=== PATIENT | female | born 1970 | race Caucasian/White ===

== ENCOUNTER → 2017-10-21 | Outpatient (CLI) | payer OTHER ==
[~2017-10-21] MED LIST: CYCL10 PO; HYDACE5 PO; IBUP600 PO
[2017-10-21 13:14] LABS: BASOPHILS ABSOLUTE AUTO 0.03 K/mm3 (0.00-0.23); BASOPHILS PERCENT AUTO 1 % (0-2); EOSINOPHILS ABSOLUTE AUTO 0.03 K/mm3 (0.00-0.68); EOSINOPHILS PERCENT AUTO 1 % (0-6); Hematocrit 28.8 % (33.0-51.0); Hemoglobin 8.3 g/dL (11.5-16.0); IMMATURE GRAN ABSOLUTE AUTO 0.01 K/mm3 (0.00-0.10); IMMATURE GRAN PERCENT AUTO 0 % (0-1); LYMPHOCYTES ABSOLUTE AUTO 1.42 K/mm3 (0.84-5.20); LYMPHOCYTES PERCENT AUTO 27 % (21-46); MONOCYTES ABSOLUTE AUTO 0.43 K/mm3 (0.16-1.47); MONOCYTES PERCENT AUTO 8 % (4-13); Mean Corpuscular HGB 20.9 pg (26.0-34.0); Mean Corpuscular HGB Conc 28.8 g/dL (31.5-36.5); Mean Corpuscular Volume 73 fL (80-100); Mean Platelet Volume 9.9 fL (9.1-12.4); NEUTROPHILS PERCENT AUTO 64 % (41-73); Platelet Count 431 K/mm3 (150-400); RDW Coefficient Variation 18.3 % (11.7-14.2); RDW Standard Deviation 48.1 fL (35.1-46.3); Red Blood Cell Count 3.97 M/mm3 (3.80-5.20); White Blood Cell Count 5.32 K/mm3 (4.00-11.30)
[2017-10-21 13:34] LABS: Alanine Aminotransfer (ALT/SGP 13 U/L (12-78); Albumin, Blood 3.1 g/dL (3.4-5.0); Alk Phos 57 U/L (50-136); Anion Gap 5 mmol/L (6-16); Aspartate Aminotrans (AST/SGOT 8 U/L (12-37); Bilirubin, Total 0.3 mg/dL (0.1-1.0); Blood Urea Nitrogen 9 mg/dL (8-24); CO2, Blood 25 mmol/L (21-32); Calcium, Blood 7.8 mg/dL (8.5-10.1); Chloride, Blood 110 mmol/L (98-108); Creatinine, Blood 0.53 mg/dL (0.40-1.00); Globulin, Blood 3.1 g/dL (2.2-4.0); Glomerular Filtration Rate >60 (60-); Glucose, Blood 84 mg/dL (70-99); Potassium, Blood 4.1 mmol/L (3.5-5.5); Sodium, Blood 140 mmol/L (136-145); Total Protein, Blood 6.2 g/dL (6.4-8.2)
== END ==
LOC: LAB 12:41
PROVIDERS: Physician Assistant
DX: R53.83 Other fatigue (principal)
CPT/HCPCS: 80053; 85025

== ENCOUNTER → 2017-10-25 | Outpatient (CLI) | payer OTHER | END | disposition home or self-care (01) | LOC: LAB 16:09 | PROVIDERS: Nurse Practitioner Family | DX: Z48.815 Encounter for surgical aftercare following surgery on the digestive system (principal); Z98.84 Bariatric surgery status | CPT/HCPCS: 82607; 82728; 83540; 83550 ==

== ENCOUNTER → 2018-06-19 | Outpatient (CLI) | payer BC ==
[2018-06-20 12:01] LABS: Antinuclear Antibody Screen Negative (Negative)
[2018-06-20 14:56] LABS: Rheumatoid Factor, Serum Negative (Negative)
== END ==
LOC: LAB SHORT 15:30 → LAB 15:30
PROVIDERS: Nurse Practitioner Family
DX: R30.0 Dysuria (principal); M25.50 Pain in unspecified joint
CPT/HCPCS: 85651; 86038; 86430; 87077; 87086; 87186

== ENCOUNTER → 2018-08-06 | Outpatient (CLI) | payer BC | END | disposition home or self-care (01) | LOC: LAB SHORT 12:10 → LAB 12:10 | DX: R30.0 Dysuria (principal) | CPT/HCPCS: 87086 ==

== ENCOUNTER 2021-03-20 04:36 | Emergency (ER) | payer BC ==
[~2021-03-20] VITALS: Ht 160 cm; Wt 49.0 kg
[~2021-03-20 04:36] MED LIST changes: +CITA20
[2021-03-20 05:22] LABS: Source, Urine Clean Catch
[2021-03-20 05:26] LABS: BASOPHILS ABSOLUTE AUTO 0.03 K/mm3 (0.00-0.23); BASOPHILS PERCENT AUTO 0 % (0-2); EOSINOPHILS PERCENT AUTO 0 % (0-6); Hematocrit 38.6 % (33.0-51.0); IMMATURE GRAN ABSOLUTE AUTO 0.04 K/mm3 (0.00-0.10); IMMATURE GRAN PERCENT AUTO 0 % (0-1); LYMPHOCYTES ABSOLUTE AUTO 0.36 K/mm3 (0.84-5.20); LYMPHOCYTES PERCENT AUTO 3 % (21-46); MONOCYTES ABSOLUTE AUTO 0.25 K/mm3 (0.16-1.47); MONOCYTES PERCENT AUTO 2 % (4-13); Mean Corpuscular HGB 25.1 pg (26.0-34.0); Mean Corpuscular HGB Conc 31.1 g/dL (31.5-36.5); Mean Corpuscular Volume 81 fL (80-100); NEUTROPHILS ABSOLUTE AUTO 12.72 K/mm3 (1.96-9.15); NEUTROPHILS PERCENT AUTO 95 % (41-73); Platelet Count 404 K/mm3 (150-400); RDW Coefficient Variation 17.2 % (11.7-14.2); RDW Standard Deviation 49.4 fL (35.1-46.3); Red Blood Cell Count 4.78 M/mm3 (3.80-5.20)
[2021-03-20 05:36] LABS: Albumin, Blood 3.4 g/dL (3.4-5.0); Albumin/Globulin Ratio 0.8 (0.8-1.8); Bilirubin, Total 0.8 mg/dL (0.1-1.0); Bun/Creatinine Ratio 16.5 (12.0-20.0); Calcium, Blood 8.6 mg/dL (8.5-10.1); Creatinine, Blood 1.09 mg/dL (0.40-1.00); Globulin, Blood 4.1 g/dL (2.2-4.0); Potassium, Blood 3.9 mmol/L (3.5-5.5); Total Protein, Blood 7.5 g/dL (6.4-8.2)
[2021-03-20 05:44] LABS: Bilirubin, Urine Neg (Neg); Blood, Urine Neg (Neg); Glucose Qualitative, Urine Neg (Neg); Ketones, Urine 2+ (Neg); Leukocyte Esterase, Urine Neg (Neg); Nitrite, Urine Pos (Neg); Protein, Urine 1+ (Neg); Urobilinogen, Urine NORM (Normal)
[2021-03-20 05:45] LABS: Appearance, Urine Clear (Clear); Color, Urine Yellow (P-Yellow)
[2021-03-20 05:46] LABS: Bacteria Many /hpf; Red Blood Cells, Urine 0-2 /hpf (0-2); Squamous Epithelial Cells Few /hpf (Few)
[2021-03-20] MEDS ORDERED: LIDO700A20 TOP (07:01)
[2021-03-20] MEDS ORDERED: OMEP20ER (07:02)
[2021-03-20] MEDS ORDERED: HYDACE10B PO (07:02)
[2021-03-20 11:23] LABS: SARS-Cov-2 (COVID-19) PCR, MMC POSITIVE (NEGATIVE)
== END 2021-03-20 13:30 | disposition short-term general hospital (02) ==
LOC: ER 04:36
PROVIDERS: Emergency Medicine; Physician Assistant
DX: N13.6 Pyonephrosis (principal); Z79.899 Other long term (current) drug therapy; Z87.891 Personal history of nicotine dependence; Z20.822 Contact with and (suspected) exposure to COVID-19
CPT/HCPCS: 36415; 74176; 80053; 81001; 81025; 83605; 83690; 85025; 87040; 87086; 96365; 96375; 96376; 99285-25; J0696; J1170; J3010; J7030; U0004

== ENCOUNTER 2021-04-13 07:40 | Emergency (ER) | payer BC ==
[~2021-04-13] VITALS: Ht 160 cm; Wt 53.1 kg
[~2021-04-13 07:40] MED LIST changes: +HYDACE10B PO; +LIDO700A20 TOP; +OMEP20ER
[2021-04-13 08:52] LABS: BASOPHILS ABSOLUTE AUTO 0.03 K/mm3 (0.00-0.23); BASOPHILS PERCENT AUTO 1 % (0-2); EOSINOPHILS PERCENT AUTO 2 % (0-6); Hematocrit 34.2 % (33.0-51.0); Hemoglobin 10.6 g/dL (11.5-16.0); IMMATURE GRAN ABSOLUTE AUTO 0.02 K/mm3 (0.00-0.10); IMMATURE GRAN PERCENT AUTO 0 % (0-1); LYMPHOCYTES ABSOLUTE AUTO 1.71 K/mm3 (0.84-5.20); LYMPHOCYTES PERCENT AUTO 27 % (21-46); MONOCYTES PERCENT AUTO 8 % (4-13); Mean Corpuscular HGB 25.5 pg (26.0-34.0); Mean Corpuscular Volume 82 fL (80-100); Mean Platelet Volume 10.2 fL (9.1-12.4); NEUTROPHILS ABSOLUTE AUTO 3.99 K/mm3 (1.96-9.15); NEUTROPHILS PERCENT AUTO 63 % (41-73); Platelet Count 328 K/mm3 (150-400); RDW Coefficient Variation 17.2 % (11.7-14.2); RDW Standard Deviation 51.8 fL (35.1-46.3); Red Blood Cell Count 4.16 M/mm3 (3.80-5.20); White Blood Cell Count 6.35 K/mm3 (4.00-11.30)
[2021-04-13 09:12] LABS: Alanine Aminotransfer (ALT/SGP 13 U/L (12-78); Albumin, Blood 3.2 g/dL (3.4-5.0); Albumin/Globulin Ratio 0.8 (0.8-1.8); Alk Phos 92 U/L (50-136); Anion Gap 2 mmol/L (6-16); Aspartate Aminotrans (AST/SGOT 15 U/L (12-37); Bilirubin, Total 0.3 mg/dL (0.1-1.0); Blood Urea Nitrogen 15 mg/dL (8-24); Bun/Creatinine Ratio 20.1 (12.0-20.0); CO2, Blood 32 mmol/L (21-32); Calcium, Blood 8.5 mg/dL (8.5-10.1); Chloride, Blood 102 mmol/L (98-108); Creatinine, Blood 0.75 mg/dL (0.40-1.00); Globulin, Blood 3.9 g/dL (2.2-4.0); Glomerular Filtration Rate >60 (60-); Glucose, Blood 93 mg/dL (70-99); Potassium, Blood 4.1 mmol/L (3.5-5.5); Sodium, Blood 136 mmol/L (136-145); Total Protein, Blood 7.1 g/dL (6.4-8.2)
[2021-04-13 10:07] LABS: Source, Urine Clean Catch
[2021-04-13 10:44] LABS: Bilirubin, Urine Neg (Neg); Blood, Urine 5+ (Neg); Glucose Qualitative, Urine Neg (Neg); Ketones, Urine Neg (Neg); Leukocyte Esterase, Urine 3+ (Neg); Nitrite, Urine Neg (Neg); Protein, Urine 3+ (Neg); Urobilinogen, Urine NORM (Normal)
[2021-04-13 11:03] LABS: Appearance, Urine Hazy (Clear); Color, Urine Yellow (P-Yellow)
[2021-04-13 11:04] LABS: Bacteria Few /hpf; Red Blood Cells, Urine TNTC /hpf (0-2); Squamous Epithelial Cells Not Seen /hpf (Few); White Blood Cells, Urine TNTC /hpf (0-5)
== END 2021-04-13 11:51 | disposition home or self-care (01) ==
LOC: ER 07:40
PROVIDERS: Emergency Medicine
DX: R60.0 Localized edema (principal); Z87.891 Personal history of nicotine dependence
CPT/HCPCS: 36415; 51798; 71046; 74176; 80053; 81001; 83880; 85025; 87086; 93005; 93010; 99284-25

== ENCOUNTER 2021-09-13 16:00 | Emergency (ER) | payer BC ==
[~2021-09-13] VITALS: Ht 160 cm; Wt 49.9 kg
== END 2021-09-13 18:51 | disposition left against medical advice (07) ==
LOC: ER 16:00
DX: K61.0 Anal abscess (principal)
CPT/HCPCS: 99282

== ENCOUNTER 2021-10-18 11:40 | Day surgery (SDC) | payer OTHER ==
[~2021-10-18] VITALS: Ht 160 cm; Wt 47.2 kg
[~2021-10-18 11:40] MED LIST changes: +Cymbalta20 MG PO; +Norco 7.5-3251 EACH PO; +OMEP20ER PO; +OXYC10ER PO
--- NOTE | 2021-10-18 14:20 | NUR ---
10/18/21 1420 Ava Martinez RECEIVED REPORT FROM CYNTHIA COFFEY, WENT INTO THE ROOM AND PATIENT WAS VERY QUIET AND APPEARED UPSET. WHEN I ASKED WHAT WAS WRONG, SHE REPLIED "NOTHING" HOWEVER I THAN NOTICED SOME TEARS. I ASKED THE PATIENT IF ANYTHING WAS HURTING AND SHE REPLIED "NO". SHE CONTINUED TO APPEAR VERY EMOTIONAL BUT WOULD NOT TALK ABOUT ANYTHING. AFTER DR WILEY TALKED WITH HER SHE VERBALIZED THAT SHE WANTED TO GET DRESSED AND GO HOME AND THIS WAS ACCOMPLISHED.
== END 2021-10-18 14:10 | disposition home or self-care (01) ==
LOC: ORSCSDS 11:40
PROVIDERS: Surgery
PROC: 0DJD8ZZ Inspection of Lower Intestinal Tract, Via Natural or Artificial Opening Endoscopic (ICD-10-PCS; principal; 2021-10-18 13:00)
DX: Z12.11 Encounter for screening for malignant neoplasm of colon (principal); K64.8 Other hemorrhoids; F41.9 Anxiety disorder, unspecified; Z79.899 Other long term (current) drug therapy
CPT/HCPCS: J2704; J7120

== ENCOUNTER 2021-11-08 13:19 | Emergency (ER) | payer OTHER ==
[~2021-11-08] VITALS: Ht 160 cm; Wt 47.6 kg
[2021-11-08 15:52] LABS: Source, Urine Clean Catch
[2021-11-08 15:58] LABS: Bilirubin, Urine Neg (Neg); Blood, Urine Neg (Neg); Glucose Qualitative, Urine Neg (Neg); Ketones, Urine Neg (Neg); Leukocyte Esterase, Urine Neg (Neg); Nitrite, Urine Neg (Neg); Protein, Urine 2+ (Neg); Specific Gravity, Urine 1.015 (1.003-1.022); Urobilinogen, Urine NORM (Normal); pH, Urine 6.5 (5.0-8.0)
[2021-11-08 16:13] LABS: Appearance, Urine Clear (Clear); Color, Urine Pale Yellow (P-Yellow)
[2021-11-08 16:14] LABS: Bacteria Rare /hpf; Mucus Light (0-Heavy); Red Blood Cells, Urine 0-2 /hpf (0-2); Squamous Epithelial Cells Few /hpf (Few); White Blood Cells, Urine 0-2 /hpf (0-5)
[2021-11-08] MEDS ORDERED: SULTRISS PO (16:36)
== END 2021-11-08 16:57 | disposition home or self-care (01) ==
LOC: ER 13:19
PROVIDERS: Physician Assistant
DX: R10.9 Unspecified abdominal pain (principal); Z87.891 Personal history of nicotine dependence
CPT/HCPCS: 74176; 81001; 99284-25; A9270

== ENCOUNTER 2022-02-14 11:30 | Emergency (ER) | payer OTHER ==
[~2022-02-14] VITALS: Ht 160 cm; Wt 43.1 kg
[~2022-02-14 11:30] MED LIST changes: +SULTRISS PO
== END 2022-02-14 15:22 | disposition left against medical advice (07) ==
LOC: ER 11:30
DX: R11.10 Vomiting, unspecified (principal); R63.4 Abnormal weight loss; Z53.21 Procedure and treatment not carried out due to patient leaving prior to being seen by health care provider
CPT/HCPCS: 99281

== ENCOUNTER 2022-09-12 18:20 | Inpatient (IN) | payer OTHER ==
[~2022-09-12] VITALS: Ht 160 cm; Wt 49.8 kg
[2022-09-12 18:39] LABS: BASOPHILS ABSOLUTE AUTO 0.06 K/mm3 (0.00-0.23); BASOPHILS PERCENT AUTO 1 % (0-2); EOSINOPHILS ABSOLUTE AUTO 0.04 K/mm3 (0.00-0.68); EOSINOPHILS PERCENT AUTO 0 % (0-6); Hematocrit 28.2 % (33.0-51.0); Hemoglobin 8.7 g/dL (11.5-16.0); IMMATURE GRAN ABSOLUTE AUTO 0.02 K/mm3 (0.00-0.10); IMMATURE GRAN PERCENT AUTO 0 % (0-1); LYMPHOCYTES ABSOLUTE AUTO 2.37 K/mm3 (0.84-5.20); LYMPHOCYTES PERCENT AUTO 26 % (21-46); MONOCYTES ABSOLUTE AUTO 0.69 K/mm3 (0.16-1.47); MONOCYTES PERCENT AUTO 8 % (4-13); Mean Corpuscular HGB 23.6 pg (26.0-34.0); Mean Corpuscular HGB Conc 30.9 g/dL (31.5-36.5); Mean Corpuscular Volume 77 fL (80-100); Mean Platelet Volume 10.4 fL (9.1-12.4); NEUTROPHILS ABSOLUTE AUTO 5.96 K/mm3 (1.96-9.15); NEUTROPHILS PERCENT AUTO 65 % (41-73); Platelet Count 317 K/mm3 (150-400); RDW Coefficient Variation 15.2 % (11.7-14.2); RDW Standard Deviation 42.2 fL (35.1-46.3); Red Blood Cell Count 3.68 M/mm3 (3.80-5.20); White Blood Cell Count 9.14 K/mm3 (4.00-11.30)
[2022-09-12 19:04] LABS: Albumin, Blood 3.1 g/dL (3.4-5.0); Bilirubin, Total 0.3 mg/dL (0.1-1.0); Bun/Creatinine Ratio 18.5 (12.0-20.0); Calcium, Blood 9.2 mg/dL (8.5-10.1); Creatinine, Blood 1.3 mg/dL (0.40-1.00); Potassium, Blood 3.8 mmol/L (3.5-5.5); Total Protein, Blood 6.1 g/dL (6.4-8.2)
[2022-09-13 01:09] LABS: Hematocrit 25.9 % (33.0-51.0); Hemoglobin 7.8 g/dL (11.5-16.0)
--- NOTE | 2022-09-13 05:24 | NUR ---
SHIFT SUMMARY NOC PT A/OX 4. ADMIT FROM ED FOR MULTIPLE SYNCOPE EPISODES 09/12/22. PT WAS COUGHING UP BLOOD. PT COUGHED UP DARK BROWN BLOOD UPON ARRIVAL ON MED FLOOR. PT HAS GI CONSULT WITH DR. DUGGAN OFFICE # [phone]. PT HAS BEEN RESTING SINCE ARRIVAL ON UNIT. PT IS CURRENTLY RESTING WITH BED IN LOWEST POSITION, AND CALL LIGHT WITHIN REACH.
[2022-09-13 06:58] LABS: BASOPHILS ABSOLUTE AUTO 0.03 K/mm3 (0.00-0.23); BASOPHILS PERCENT AUTO 1 % (0-2); EOSINOPHILS ABSOLUTE AUTO 0.03 K/mm3 (0.00-0.68); EOSINOPHILS PERCENT AUTO 1 % (0-6); Hematocrit 23.4 % (33.0-51.0); Hemoglobin 7.2 g/dL (11.5-16.0); IMMATURE GRAN ABSOLUTE AUTO 0.01 K/mm3 (0.00-0.10); IMMATURE GRAN PERCENT AUTO 0 % (0-1); LYMPHOCYTES ABSOLUTE AUTO 2.14 K/mm3 (0.84-5.20); LYMPHOCYTES PERCENT AUTO 36 % (21-46); MONOCYTES PERCENT AUTO 7 % (4-13); Mean Corpuscular HGB 23.8 pg (26.0-34.0); Mean Corpuscular HGB Conc 30.8 g/dL (31.5-36.5); Mean Corpuscular Volume 78 fL (80-100); Mean Platelet Volume 10.8 fL (9.1-12.4); NEUTROPHILS ABSOLUTE AUTO 3.33 K/mm3 (1.96-9.15); NEUTROPHILS PERCENT AUTO 56 % (41-73); Platelet Count 251 K/mm3 (150-400); RDW Coefficient Variation 15.5 % (11.7-14.2); Red Blood Cell Count 3.02 M/mm3 (3.80-5.20); White Blood Cell Count 5.94 K/mm3 (4.00-11.30)
[2022-09-13 07:20] LABS: Albumin, Blood 2.6 g/dL (3.4-5.0); Albumin/Globulin Ratio 0.9 (0.8-1.8); Bilirubin, Total 0.5 mg/dL (0.1-1.0); Bun/Creatinine Ratio 34.6 (12.0-20.0); Calcium, Blood 8.1 mg/dL (8.5-10.1); Creatinine, Blood 0.9 mg/dL (0.40-1.00); Globulin, Blood 2.8 g/dL (2.2-4.0); Percent Saturation 23.4 % (15.0-50.0); Potassium, Blood 4.3 mmol/L (3.5-5.5); Total Protein, Blood 5.4 g/dL (6.4-8.2)
--- NOTE | 2022-09-13 17:48 | NUR ---
SHIFT SUMMARY NO CHANGES WITH HER ALL DAY. SHE IS STILL AWAITING TO GO FOR HER SCOPE. HER HAS BEEN AT THE BS TODAY ALONG WITH HER DAUGHTER FOR A BIT. SHE REMAINS NPO. WILL REPORT TO ONCOMING NURSE.
--- NOTE | 2022-09-13 20:53 | NUR ---
09/13/222052 Nyasia Lenz HISTORY, CHART, MEDICATIONS AND ALLERGIES REVIEWED BEFORE START OF PROCEDURE. PATIENT CONFIRMS NPO STATUS AND AGREES WITH SCHEDULED PROCEDURE. 3-LEAD EKG REVIEWED WITH PHYSICIAN PRIOR TO START OF PROCEDURE. MONITOR INTACT WITH CONTINUOUS PULSE OXIMETRY,CAPNOGRAPHY, 3-LEAD EKG, INTERMITTENT BP. SUPPLEMENTAL O2 TO BE TITRATED THROUGHOUT PROCEDURE TO MAINTAIN O2 SATURATION ABOVE 90%. PATIENT DETERMINED TO BE ASA APPROPRIATE FOR PROPOFOL SEDATION PRIOR TO START OF PROCEDURE BY DR. CAIN.
--- NOTE | 2022-09-13 21:31 | NUR ---
POST EGD NOTE PT IS RETURNED TO ROOM VIA GURNEY. PT IS A&O X4. VITAL SIGNS ARE WNL. WE WILL DO A BEDSIDE SWALLOW EVAL PT IS REQUESTING WATER
--- NOTE | 2022-09-14 04:41 | NUR ---
SHIFT SUMMARY ADMITTED FOR SYNCOPE/HEMATEMESIS. FULL CODE. GI CONSULT DR. DUGGAN PERFORMED AN UPPER ENDOSCOPY AT BEGINNING OF THIS SHIFT. GASTRIC ULCER FOUND. PLAN IS FOR CLEAR LIQUID DIET, PPI. [facility]. SHE IS A&O X4, INDEPENDENT. SHE IS SWALLOWING WELL WITHOUT CHOKING, SHE IS TOLERATING CLEAR LIQUID DIET. NO N/V REPORTED
[2022-09-14 05:42] LABS: Hematocrit 25.2 % (33.0-51.0); Hemoglobin 7.6 g/dL (11.5-16.0); Mean Corpuscular HGB 23.5 pg (26.0-34.0); Mean Corpuscular HGB Conc 30.2 g/dL (31.5-36.5); Mean Corpuscular Volume 78 fL (80-100); Mean Platelet Volume 11.1 fL (9.1-12.4); Platelet Count 269 K/mm3 (150-400); RDW Coefficient Variation 15.4 % (11.7-14.2); RDW Standard Deviation 43.7 fL (35.1-46.3); Red Blood Cell Count 3.23 M/mm3 (3.80-5.20); White Blood Cell Count 5.16 K/mm3 (4.00-11.30)
[2022-09-14 06:04] LABS: Bun/Creatinine Ratio 23.3 (12.0-20.0); Calcium, Blood 8.2 mg/dL (8.5-10.1); Creatinine, Blood 0.77 mg/dL (0.40-1.00); Potassium, Blood 4.6 mmol/L (3.5-5.5)
[2022-09-14 11:10] LABS: Percent Saturation 5.9 % (15.0-50.0)
[2022-09-14 11:37] LABS: Hematocrit 24.9 % (33.0-51.0); Hemoglobin 7.6 g/dL (11.5-16.0)
[2022-09-14] MEDS ORDERED: FERSU300 PO (12:59)
[2022-09-14] MEDS ORDERED: PANT40 PO (13:00)
--- NOTE | 2022-09-14 14:56 | NUR ---
DC HOME WRITTEN & VERBAL DC INSTRUCTIONS GIVEN TO PT WITH GOOD UNDERSTANDING VERBALIZED. PIV DC'D WITH CATH TIP INTACT, NO REDNESS OR SWELLING NOTED. WRITTEN SCRIPT FOR PT'S RECOMMENDED DATE TO RETURN TO WORK GIVEN TO PT. PT TO PRIVATE VEHICLE VIA W/C WITH ALL PERSONAL BELONGINGS.
== END 2022-09-14 15:00 | disposition home or self-care (01) | DRG 378 ==
LOC: ER 18:20 → MEDS 22:31
PROVIDERS: Emergency Medicine; Family Medicine; Internal Medicine; Student in an Organized Health Care Education/Training Program; ADMIT Internal Medicine
PROC: 0DJ08ZZ Inspection of Upper Intestinal Tract, Via Natural or Artificial Opening Endoscopic (ICD-10-PCS; principal; 2022-09-13 16:00)
DX: K28.4 Chronic or unspecified gastrojejunal ulcer with hemorrhage (principal); N17.9 Acute kidney failure, unspecified; G89.29 Other chronic pain; F41.9 Anxiety disorder, unspecified; D50.0 Iron deficiency anemia secondary to blood loss (chronic); R55 Syncope and collapse; Z98.84 Bariatric surgery status; Z98.51 Tubal ligation status; Z98.890 Other specified postprocedural states; Z87.891 Personal history of nicotine dependence; Z79.899 Other long term (current) drug therapy; Z79.891 Long term (current) use of opiate analgesic
CPT/HCPCS: 36415; 80048; 80053; 82728; 83540; 83550; 85014; 85018; 85025; 85027; 93005; 93010; 96374; 96375; 99285-25; A9270; C9113; J2250; J2405; J2704; J7030; J7120